=== PATIENT | female | born 1990 | race Caucasian/White ===

== ENCOUNTER 2022-02-05 05:28 | Emergency (ER) | payer MEDICAID ==
[2022-02-05 05:32] VITALS: BP 134/85; PULSE 100
[2022-02-05] MEDS ORDERED: Ibuprofen 200 MG Tab PO ONE (05:57)
[2022-02-05] MEDS ORDERED: Potassium Chloride 10 MEQ Tab.ER PO STA (06:01)
[2022-02-05] MEDS ORDERED: Nirmatrelvir/Ritonavir 300 MG/100 MG Dose Pack PO STA (06:13)
[2022-02-05] MEDS ORDERED: Amoxicillin/Clavulanate K 875-125 MG Tab PO STA (06:13)
== END 2022-02-05 06:40 | disposition home or self-care (01) ==
LOC: CC.ED 05:28
DX: U07.1 COVID-19 (principal); H65.01 Acute serous otitis media, right ear; F17.210 Nicotine dependence, cigarettes, uncomplicated; Z88.5 Allergy status to narcotic agent; Z91.048 Other nonmedicinal substance allergy status; Z88.8 Allergy status to other drugs, medicaments and biological substances
CPT/HCPCS: 36415; 71046; 80053; 85025; 86140; 99283-25; 99284; A9270-GY

== ENCOUNTER 2022-06-05 22:30 | Emergency (ER) | payer MEDICAID ==
[2022-06-05 22:44] VITALS: BP 141/79; PULSE 90
== END 2022-06-05 23:26 | disposition home or self-care (01) ==
LOC: CC.ED 22:30
DX: J20.9 Acute bronchitis, unspecified (principal); J02.9 Acute pharyngitis, unspecified; Z86.16 Personal history of COVID-19; Z91.048 Other nonmedicinal substance allergy status; Z88.8 Allergy status to other drugs, medicaments and biological substances; Z88.5 Allergy status to narcotic agent; Z20.822 Contact with and (suspected) exposure to COVID-19
CPT/HCPCS: 87430; 99283; U0002